=== PATIENT | female | born 1970 | race Caucasian/White ===

== ENCOUNTER 2016-06-15 04:05 | Inpatient (IN) | payer BC ==
[2016-06-02 12:51] LABS: BASOPHILS 0.2 %; BASOPHILS ABSOLUTE 0.03 10/3/uL (0.0-0.16); EOSINOPHILS ABSOLUTE 0.13 10/3/uL (0.0-0.53); HEMATOCRIT 41.3 % (36.0-48.0); HEMOGLOBIN 13.3 g/dL (12.0-16.0); IMMATURE GRANULOCYTES 0.2 %; IMMATURE GRANULOCYTES ABSOLUTE 0.03 10/3/uL (0.0-0.11); LYMPHOCYTES 19.3 %; MEAN CORPUS HGB CONC 32.2 g/dL (32.0-36.0); MEAN CORPUSCULAR HEMOGLOB 28.4 pg (26.0-34.0); MEAN CORPUSCULAR VOLUME 88.2 fL (80-100); MEAN PLATELET VOLUME 9.6 fL (9.2-13.0); MONOCYTES 4.6 %; MONOCYTES ABSOLUTE 0.57 10/3/uL (0.21-1.20); NEUTROPHILS 74.7 %; NEUTROPHILS ABSOLUTE 9.26 10/3/uL (2.02-8.40); PLATELET COUNT 337 10/3/uL (150-400); RBC DISTRIBUTION WIDTH 14.9 % (12.0-16.0); RED CELL COUNT 4.68 10/6/uL (4.0-5.6); WHITE BLOOD CELLS 12.4 10/3/uL (4.5-10.5)
[2016-06-02 12:52] LABS: MANUAL DIFF NO %
[2016-06-02 13:00] LABS: INTERNATIONAL NORMAL RATI 1.1 UNITS (-); PROTIME (NOT ORD) 14.3 SEC (12.0-14.5)
[2016-06-02 13:13] LABS: ALBUMIN 3.8 G/DL (3.5-5.0); ALKALINE PHOSPHATASE 134 U/L (45-117); BUN (BLOOD UREA NITROGEN) 10 MG/DL (6-23); CALCIUM, SERUM 9.2 MG/DL (8.5-10.4); CHLORIDE, SERUM 102 MMOL/L (96-112); CO2 (CARBON DIOXIDE) 28 MMOL/L (24-34); CREATININE 0.85 MG/DL (0.55-1.02); GFR AFRICAN AMERICAN 95 ML/MIN (>=60); GFR NON AFRICAN AMERICAN 82 ML/MIN (>=60); POTASSIUM, SERUM 4.5 MMOL/L (3.5-5.3); SGOT(AST) 21 U/L (5-40); SGPT(ALT) 39 U/L (5-65); SODIUM, SERUM 141 MMOL/L (135-148); TOTAL BILIRUBIN 0.3 MG/DL (0-1.2); TOTAL PROTEIN 7.8 G/DL (6.0-8.5)
[2016-06-02 13:15] LABS: GLUCOSE, SERUM 132 MG/DL (60-99)
[2016-06-02 15:18] LABS: ASCORBIC ACID (UR NOT ORDER) NEG (NEG); BILIRUBIN, URINE NEGATIVE (NEG); KETONE, URINE NEGATIVE (NEG); LEUKOCYTE ESTERASE(NOT OR NEG (NEG); WBC (NOT ORDERED) (RFLEX) 3 (0-5)
--- NOTE | ~2016-06-15 | OP ---
Record Of Operation [facility] [address] [place]. [address] NAME: LAVERN POPE : 68 STATUS : ADM IN [facility]#: [id number] AGE: 45 ADM/REG DATE : 06/15/16 MR#: [id number] REPORT SERV DATE: 06/15/16 DICTATED BY: MICHELLE BAIN DATE: 06/15/16 REPORT STATUS : Draft TRANSCRIBED BY: TIMOTHY DATE: 06/15/16 DATE OF PROCEDURE: 06/15/2016 PREOPERATIVE DIAGNOSIS: Severe left knee degenerative joint disease. POSTOPERATIVE DIAGNOSIS: Severe left knee degenerative joint disease. OPERATION: Left posterior stabilized total knee replacement, cemented. SIDE: Left. SIZE: See chart. ANESTHESIA: See chart. ESTIMATED BLOOD LOSS: About 10 mL. TOURNIQUET TIME: Approximately 1 hour and 10 minutes. COMPLICATIONS: None. SPECIMENS: Articular surfaces. PROCEDURE: The patient was appropriately identified and marked. The operative side agreed with the consent form and it was checked by all members of the surgical team. The patient was taken to the operating room and anesthesia was induced per the anesthesiologist. The patient was carefully transferred to the operating table without incident. The patient received appropriate prophylactic antibiotics and a Worthington catheter was placed in the standard sterile technique. The patient was then carefully positioned, padded, prepped and draped in the normal sterile fashion. The operative leg had been appropriately identified and checked by all members of the operating team against the consent form and found to be the correct limb. The patient's lower extremity was then exsanguinated with an Teddy wrap and a tourniquet was inflated to 350 mm/Hg. Sharp dissection was carried out through a straight midline longitudinal incision and electrocautery through the fat. Sharp quad splitting approach was carried out between about the medial 10 percent of the tendon and the lateral 90 percent of the tendon and down around the medial aspect of the patella and then 1 cm medial to the tibial tubercle. The patella was carefully everted and the posterior fat pad was excised and gentle MCL elevation was carried out off the proximal medial tibia subperiosteally. IM guide was placed in the distal femur after using the appropriate drill. The distal femoral cutting guide was held with 2 pins and the distal cut made. Meniscal fragments and the ACL and the PCL were excised with electrocautery, carefully staying anterior to the posterior fat pad. The proximal tibial alignment guide was set appropriately and the proximal tibial cut made. Spacer block verified full extension with excellent mediolateral balance. Sizing guide was used to place 2 drill holes in the distal femur and the four-in-one cutting block was then placed, impacted and checked Record Of Operation [facility] [address] [place]. [address] NAME: LAVERN POPE : 68 STATUS : ADM IN PAT#: [id number] AGE: 45 ADM/REG DATE : 06/15/16 MR#: [id number] REPORT SERV DATE: 06/15/16 DICTATED BY: MICHELLE BAIN DATE: 06/15/16 REPORT STATUS : Draft TRANSCRIBED BY: TIMOTHY DATE: 06/15/16 to be sure it would not notch with an basilio wing and it was held with 2 pins. The anterior cut, posterior cut, anterior chamfer and posterior chamfer cuts were made. The pins were removed and the block was removed. A posterior release was carried out with a curved 3/4 inch osteotome staying right on the bone posteriorly. The box-cut guide was then placed, impacted and held with 2 pins and a reciprocating saw was used to cut out the box. With the trial components in place, there was excellent medial/lateral balance. The patella was then measured with a caliper, cut first with an oscillating saw and then reamed with a patella reamer. With the trial patella in place, there was excellent patellar tracking. Rotation was marked on the tibia and the tibia prepared with a drill and stamp chisel. All surfaces were then copiously irrigated with pulsatile lavage, carefully dried and then vacuum-mixed cement was pressurized with a cement gun in a doughy phase. The tibial component was placed, impacted and excess cement was removed. The cement was then pressurized in the femur and placed on the posterior runners of the femoral component, which was placed, impacted and excess cement removed and the knee was brought out into extension on a trial spacer. The cement was then pressurized in the patella. Patellar component was then placed, clamped and excess cement was removed. Once all cement was hardened, the knee was taken through range of motion. Further extruded cement was removed with a small osteotome. Then based on the trial inserts, we decided on the actual insert, which was placed in the standard fashion and held with a locking mechanism. The knee was then copiously irrigated and then closed in a layered fashion over a medium Hemovac drain superolaterally with interrupted #1 in the deep fascia, 2-0 subcutaneous and ocni in the skin. The wounds were dressed sterilely and the tourniquet was deflated. The patient was then awakened and taken to the postanesthesia care unit without incident. All counts were correct at the end of the case. WTB/MODL Andre Bain M.D. / [id number] CC: Lizzeth Jarvis MD
--- NOTE | ~2016-06-15 | DS ---
Discharge Summary [facility] [address] [place]. [address] NAME: LAVERN POPE : 68 STATUS : DIS IN PAT#: [id number] AGE: 45 ADM/REG DATE : 06/15/16 MR#: [id number] REPORT SERV DATE: 06/30/16 DICTATED BY: MICHELLE BAIN DATE: 06/29/16 REPORT STATUS : Draft TRANSCRIBED BY: TIMOTHY DATE: 06/29/16 Data Collection from hospitalization DISCHARGE DIAGNOSES: 1. Severe left knee degenerative joint disease. 2. Fmo-zofitrp-lmzbtwjyc diabetes. 3. Hypertension. 4. Asthma. 5. Morbid obesity. 6. Anxiety. 7. Rheumatoid arthritis. 8. Depression. 9. Heart murmur. 10.Gastroesophageal reflux disease. CONSULTATIONS: None. PROCEDURES PERFORMED: Left posterior stabilized total knee replacement, cemented, 06/15/2016. PATHOLOGY: Joint, bone and tissue, left knee - degenerative joint disease. MEDICATIONS: Proventil one nebulized inhaler three to four times per day as needed, BuSpar 5 mg three times a day as needed, Celebrex 200 mg every morning, Celexa 20 mg at bedtime, Advair Diskus one puff via inhaler twice a day, [place] 7.5/325 one tablet every four hours as needed, Cozaar 25 mg every morning, Fortamet 500 mg every morning, Robaxin 500 mg every eight hours as needed, Singulair 10 mg at bedtime, Zofran 4 mg every six hours as needed, Ultram 50 mg every four to six hours as needed, Desyrel 50 mg at bedtime as needed, Calan 80 mg twice a day, and Coumadin as instructed. CONDITION AT DISCHARGE: Stable. DISPOSITION: The patient was discharged home on an 1800-calorie diabetic diet with activities as instructed. She would follow up with Alexis Javed on 06/29/2016. She would follow up at [facility] for physical therapy on 06/20/2016 and at [facility] on Sunday or Sunday following discharge. HOSPITAL COURSE: This is a 45-year-old female who has left knee degenerative joint disease. Treatment options were discussed and it was elected to proceed with surgical intervention. She was admitted to the hospital at this time for further evaluation and treatment. Upon admission, she was taken to the operating room where she underwent the above-mentioned procedure. She tolerated this well, and there were no complications. Postoperatively, she was evaluated by occupational and physical therapy. On postop day #1, she was up sitting in a bedside chair. WAGNER hose were in place. Level 1 sliding scale insulin was started. We encouraged her to lose weight. On postop day #2, WAGNER hose were in place. She described her pain in the left knee as being 10/10. She was crying in pain. Over the next couple of days, discharge planning was performed. She said she was feeling a little better. Aerosol Discharge Summary [id number] [place]. [address] NAME: LAVERN POPE : 68 STATUS : DIS IN PAT#: [id number] AGE: 45 ADM/REG DATE : 06/15/16 MR#: [id number] REPORT SERV DATE: 06/30/16 DICTATED BY: MICHELLE BAIN DATE: 06/29/16 REPORT STATUS : Draft TRANSCRIBED BY: TIMOTHY DATE: 06/29/16 treatments continued. On 06/19/2016, she was slowly progressing with Physical Therapy. She was wanting to go home. Discharge instructions were given. Due to her improved and stable condition, she was discharged home with the above-stated instructions. Information collected by: Radha Lawton I submit the above information as my discharge summary. CLEM/TIMOTHY Andre Bain M.D. / [id number] CC: Lizzeth Jarvis MD
[~2016-06-15 04:05] MED LIST: ADVAIR250 INH; ALBUTEROL5 INH; BUSPAR5 PO; CALAN80 MG PO; CELEBREX2 PO; CELEXA20 PO; COZ25 PO; ENDOCET1 TAB PO; FLEX PO; FORTAMET500 MG PO; SINGULAIR1 PO; TRAZ50 PO; ULTRAM50 PO; V40 PO
[2016-06-16 05:50] LABS: BUN (BLOOD UREA NITROGEN) 12 MG/DL (6-23); CALCIUM, SERUM 8.6 MG/DL (8.5-10.4); CHLORIDE, SERUM 103 MMOL/L (96-112); CO2 (CARBON DIOXIDE) 26 MMOL/L (24-34); CREATININE 1.04 MG/DL (0.55-1.02); GFR AFRICAN AMERICAN 75 ML/MIN (>=60); GFR NON AFRICAN AMERICAN 64 ML/MIN (>=60); POTASSIUM, SERUM 4.8 MMOL/L (3.5-5.3); SODIUM, SERUM 138 MMOL/L (135-148)
[2016-06-16 05:51] LABS: INTERNATIONAL NORMAL RATI 1.2 UNITS (-); PROTIME (NOT ORD) 14.9 SEC (12.0-14.5)
[2016-06-16 05:56] LABS: HEMOGLOBIN 11.4 g/dL (12.0-16.0)
[2016-06-16 05:58] LABS: GLUCOSE, SERUM 159 MG/DL (60-99)
[2016-06-16 06:10] LABS: HEMATOCRIT 35.4 % (36.0-48.0)
[2016-06-17 04:27] LABS: INTERNATIONAL NORMAL RATI 1.4 UNITS (-)
[2016-06-17 04:33] LABS: HEMATOCRIT 34.3 % (36.0-48.0)
[2016-06-17 04:36] LABS: CALCIUM, SERUM 9.2 MG/DL (8.5-10.4); CHLORIDE, SERUM 102 MMOL/L (96-112); CO2 (CARBON DIOXIDE) 29 MMOL/L (24-34); CREATININE 1.04 MG/DL (0.55-1.02); GFR AFRICAN AMERICAN 75 ML/MIN (>=60); GFR NON AFRICAN AMERICAN 64 ML/MIN (>=60); GLUCOSE, SERUM 159 MG/DL (60-99); SODIUM, SERUM 137 MMOL/L (135-148)
[2016-06-17 04:42] LABS: BUN (BLOOD UREA NITROGEN) 17 MG/DL (6-23)
[2016-06-18 04:11] LABS: HEMATOCRIT 34.7 % (36.0-48.0)
[2016-06-18 04:24] LABS: INTERNATIONAL NORMAL RATI 1.9 UNITS (-)
[2016-06-18 04:27] LABS: PROTIME (NOT ORD) 21.8 SEC (12.0-14.5)
[2016-06-19 05:17] LABS: INTERNATIONAL NORMAL RATI 1.9 UNITS (-); PROTIME (NOT ORD) 21.2 SEC (12.0-14.5)
[2016-06-19 05:23] LABS: CALCIUM, SERUM 8.3 MG/DL (8.5-10.4); CHLORIDE, SERUM 103 MMOL/L (96-112); CREATININE 0.65 MG/DL (0.55-1.02); GFR AFRICAN AMERICAN 123 ML/MIN (>=60); GFR NON AFRICAN AMERICAN 106 ML/MIN (>=60); POTASSIUM, SERUM 4.1 MMOL/L (3.5-5.3); SODIUM, SERUM 143 MMOL/L (135-148)
[2016-06-19 05:24] LABS: BUN (BLOOD UREA NITROGEN) 11 MG/DL (6-23); CO2 (CARBON DIOXIDE) 34 MMOL/L (24-34); GLUCOSE, SERUM 123 MG/DL (60-99)
[2016-06-19] MEDS ORDERED: ZOFRAN4 PO (11:45)
[2016-06-19] MEDS ORDERED: COUMADIN3 MG (11:45)
[2016-06-19] MEDS ORDERED: METHOC500B PO (11:45)
[2016-06-19] MEDS ORDERED: NORCO1 TA2 PO (11:45)
== END 2016-06-19 15:50 | disposition home or self-care (01) | DRG 470 ==
LOC: SDC/OF 04:05 → PACU 08:06 → 3JRC 09:52
PROVIDERS: Specialist
PROC: 3E0T3CZ (ICD-10-PCS; 2016-06-15)
PROC: 0SRD0J9 Replacement of Left Knee Joint with Synthetic Substitute, Cemented, Open Approach (ICD-10-PCS; principal; 2016-06-15 05:30)
DX: M17.12 Unilateral primary osteoarthritis, left knee (principal); Z68.42 Body mass index [BMI] 45.0-49.9, adult; I10 Essential (primary) hypertension; Z23 Encounter for immunization; E11.9 Type 2 diabetes mellitus without complications; J45.909 Unspecified asthma, uncomplicated; F32.9 Major depressive disorder, single episode, unspecified; E66.01 Morbid (severe) obesity due to excess calories; Z88.8 Allergy status to other drugs, medicaments and biological substances; Z91.040 Latex allergy status; Z91.030 Bee allergy status; Z79.899 Other long term (current) drug therapy; Z79.84 Long term (current) use of oral hypoglycemic drugs; K21.9 Gastro-esophageal reflux disease without esophagitis; F41.9 Anxiety disorder, unspecified
CPT/HCPCS: 71020; 80048; 80053; 81001; 82962; 84703; 85014; 85018; 85025; 85610; 87641; 88305; 88311; 90686; 93005; 94640; 97110-GP; 97116-GP; 97150-GP; 97161-GP; 97165-GO; 97535-GO; A9270-GY; C1776; G0008; J0690; J1885; J2250; J2274; J2370; J2405; J2795; J3010; J3370